=== PATIENT | male | born 1935 | race African-American/Black ===

== ENCOUNTER 2016-12-26 09:35 | Observation (INO) | payer MEDICARE ==
--- NOTE | 2016-12-26 10:28 | ER Document Report ---
ED Medical Screen (RME) - General Chief Complaint: Dizziness Stated Complaint: DIZZINESS Time Seen by Provider: 12/26/16 10:22 Notes: Patient is a 81-year-old male, past medical history hypertension, hyperlipidemia , presents after he woke up feeling lightheaded when he stands. He noticed about a 20 minute episode where he felt his heart racing, he took his pulse and it was elevated. It resolved without any intervention. He is currently only complaining of feeling lightheaded when he stands, but is not having palpitations. Denies syncope, chest pain, shortness of breath, leg swelling on the nausea, vomiting, blurry vision, numbness or tingling. PE: RRR. Lungs CTAB. Abdomen soft and non-tender. No nystagmus. I have greeted and performed a rapid initial assessment of this patient. A comprehensive ED assessment and evaluation of the patient, analysis of test results and completion of the medical decision making process will be conducted by additional ED providers. TRAVEL OUTSIDE OF THE [place] IN LAST 30 DAYS: No - Related Data Allergies/Adverse Reactions: No Known Allergies Allergy (Verified 12/26/16 09:48) Past Medical History - Past Medical History Cardiac Medical History: Reports: Hx Congestive Heart Failure, Hx Hypercholesterolemia, Hx Hypertension Pulmonary Medical History: Reports: Hx COPD Renal/ Medical History: Denies: Hx Peritoneal Dialysis - Immunizations Hx Diphtheria, Pertussis, Tetanus Vaccination: Yes
--- NOTE | 2016-12-26 11:19 | ER Document Report ---
ED General - General Chief Complaint: Dizziness Stated Complaint: DIZZINESS Time Seen by Provider: 12/26/16 10:22 Notes: 81-year-old male presents with sudden onset positional dizziness after his going from sitting to standing and walking alcohol about 3 hours ago at home. He felt like he was going to black out but did not. He sat down and had water and felt better but now is only mildly dizzy. Denies vertigo or unilateral neurologic symptoms palpitations chest pain shortness of breath or vomiting. Denies headache. He did measure his pulse and stated that it was "fast." He has never syncopized before. I do not see that he had an echo in the system but he does have a baseline conduction abnormality and had a negative Cardiolite stress test in 2013. TRAVEL OUTSIDE OF THE [place] IN LAST 30 DAYS: No - Related Data Allergies/Adverse Reactions: No Known Allergies Allergy (Verified 12/26/16 09:48) Past Medical History - Social History Smoking Status: Never Smoker Frequency of alcohol use: None Drug Abuse: None Family History: CAD Patient has suicidal ideation: No Patient has homicidal ideation: No - Past Medical History Cardiac Medical History: Reports: Hx Congestive Heart Failure, Hx Hypercholesterolemia, Hx Hypertension Pulmonary Medical History: Reports: Hx COPD Renal/ Medical History: Denies: Hx Peritoneal Dialysis - Immunizations Hx Diphtheria, Pertussis, Tetanus Vaccination: Yes Hx Pneumococcal Vaccination: 07/01/07 Review of Systems - Review of Systems Notes: GEN: Denies fever, chills, weight loss ENT: Denies sore throat, nasal discharge, ear pain EYES: Denies blurry vision, eye pain, discharge CV: Denies chest pain, palpitations, edema RESP: Denies cough, shortness of breath, wheezing GI: Denies abdominal pain, nausea, vomiting, diarrhea MSK: Denies joint pain/swelling, edema, SKIN: Denies rash, skin lesions LYMPH: Denies swollen glands/lymph nodes NEURO: Denies headache, focal weakness or numbness, dizziness PSYCH: Denies depression, suicidal or homicidal ideation Physical Exam - Vital signs Vitals: Resp 20 12/26/16 10:23 - Notes Notes: General: No acute distress, well-nourished Head: Atraumatic, normocephalic ENT: Mouth normal, oropharynx moist, no exudates or tonsillar enlargement Eyes: Conjunctiva normal, pupils equal, lids normal Neck: No JVD, supple, no guarding CVS: Normal rate, regular rhythm, no murmurs Resp: No resp distress, equal and normal breath sounds bilaterally GI: Nondistended, soft, no tenderness to palpation, no rebound or guarding Ext: No deformities, no edema, normal range of motion in upper and lower ext Skin: No rash, warm Lymphatic: No lymphadeopathy noted Neuro: Awake, alert. Face symmetric. Course - Re-evaluation Re-evalutation: 12/26/16 11:47 81-year-old male presents with positional dizziness now nearly resolved with normal vital signs. He does not have a murmur or other physical exam findings concerning for a cause of syncope. There is EKG is abnormal, it is unchanged from prior in terms of the conduction abnormalities. I will get basic labs to rule out anemia and MN. 12/26/16 12:02 Lab evaluation is negative. 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 Observation telemetry per Dr. Peterson at 12 PM. - Vital Signs Vital signs: Temp Pulse Resp BP Pulse Ox 19 97 12/26/16 11:19 12/26/16 11:19 - Laboratory Result Diagrams: 12/26/16 11:04 12/26/16 11:04 Laboratory results interpreted by me: 12/26/16 11:04 Glucose 118 H Creatine Kinase 248 H - EKG Interpretation by [facility] EKG shows normal: Sinus rhythm, ST-T Waves - No acute changes Rate: Normal Heart block present: 1st Degree When compared to previous EKG there are: No significant change - Trifascicular block changed Additional EKG results interpreted by me: 12/26/16 11:19 Trifascicular block Discharge - Discharge Condition: Good Disposition: ADMITTED OBSERVATION Admitting Provider: Hospitalist Unit Admitted: Telemetry
--- NOTE | 2016-12-26 11:21 | RADIOLOGY REPORT (SQ) ---
EXAM DESCRIPTION: CHEST SINGLE VIEW COMPLETED DATE/TIME: 12/26/2016 11:12 am REASON FOR STUDY: palpitations COMPARISON: 05/13/2014, 11/05/2012 EXAM PARAMETERS: NUMBER OF VIEWS: One view. TECHNIQUE: Single frontal radiographic view of the chest acquired. RADIATION DOSE: NA LIMITATIONS: None. FINDINGS: LUNGS AND PLEURA: No opacities, masses or pneumothorax. No pleural effusion. MEDIASTINUM AND HILAR STRUCTURES: No masses. Contour normal. HEART AND VASCULAR STRUCTURES: Heart normal in size. Normal vasculature. BONES: No acute findings. HARDWARE: None in the chest. OTHER: No other significant finding. IMPRESSION: NO ACUTE RADIOGRAPHIC FINDING IN THE CHEST. TECHNICAL DOCUMENTATION: JOB ID: [id number]
[2016-12-26 11:22] LABS: ABSOLUTE EOSINOPHILS # (AUTO) 0.1 10^3/uL (0.0-0.6); ABSOLUTE LYMPHOCYTES (AUTO) 1.9 10^3/uL (0.5-4.7); ABSOLUTE MONOCYTES (AUTO) 0.6 10^3/uL (0.1-1.4); ABSOLUTE NEUT (AUTO) 2.8 10^3/uL (1.7-8.2); BASOPHILS % (AUTO) 0.3 % (0-2); EOSINOPHILS % (AUTO) 1.9 % (0-6); HEMATOCRIT 42.6 % (37.9-51.0); HEMOGLOBIN 14.1 g/dL (13.5-17.0); HGB HCT DIFFERENCE -0.3; LYMPHOCYTES % (AUTO) 35.4 % (13-45); MEAN CORPUSCULAR HEMOGLOBIN 31.3 pg (27.0-33.4); MEAN CORPUSCULAR HGB CONC 33.1 g/dL (32.0-36.0); MEAN CORPUSCULAR VOLUME 95 fl (80-97); MONOCYTES % (AUTO) 10.5 % (3-13); SEGMENTED NEUTROPHILS % (AUTO) 51.9 % (42-78); WHITE BLOOD COUNT 5.4 10^3/uL (4.0-10.5)
[2016-12-26 11:39] LABS: ALANINE AMINOTRANSFERASE 34 U/L (21-72); ALBUMIN 4.4 g/dL (3.5-5.0); ALKALINE PHOSPHATASE 60 U/L (38-126); ANION GAP 11 (5-19); ASPARTATE AMINO TRANSFERASE 26 U/L (17-59); BILIRUBIN,DIRECT 0.2 mg/dL (0.0-0.4); BILIRUBIN,TOTAL 0.7 mg/dL (0.2-1.3); BLOOD UREA NITROGEN 14 mg/dL (7-20); CALCIUM 9.8 mg/dL (8.4-10.2); CARBON DIOXIDE 26 mmol/L (22-30); CHLORIDE 104 mmol/L (98-107); CREATINE KINASE 248 U/L (55-170); CREATININE RESULT 0.95 mg/dL (0.52-1.25); GLUCOSE 118 mg/dL (75-110); POTASSIUM 4.5 mmol/L (3.6-5.0); TOTAL PROTEIN 7.9 g/dL (6.3-8.2)
[2016-12-26 11:52] LABS: TROPONIN I < 0.012 ng/mL
[2016-12-26] MEDS ORDERED: RINGERS SOLUTION,LACTATED 1,000 ML IV PRN (14:01)
[2016-12-26] MEDS ORDERED: ACETAMINOPHEN 325 MG TABLET PO PRN (14:04)
[2016-12-26] MEDS ORDERED: MAGNESIUM HYDROXIDE SUSP 30 ML UDCUP PO PRN (14:04)
[2016-12-26] MEDS ORDERED: ONDANSETRON HCL INJ/PF 4 MG/2 ML SDV IV PRN (14:04)
[2016-12-26 14:52] LABS: PARTIAL THROMBOPLASTIN TIME 23.7 SEC (23.5-35.8)
[2016-12-26 14:55] LABS: D-DIMER 0.73 ug/mL (0.00-0.50)
[2016-12-26 15:14] LABS: PHOSPHORUS 3.2 mg/dL (2.5-4.5)
--- NOTE | 2016-12-26 15:41 | RADIOLOGY REPORT (SQ) ---
EXAM DESCRIPTION: CTA CHEST COMPLETED DATE/TIME: 12/26/2016 3:24 pm REASON FOR STUDY: asymmetric pulses, poss subclavian steal R55 SYNCOPE AND COLLAPSE R73.9 HYPERGLY CEMIA, UNSPECIFIED I10 ESSENTIAL (PRIMARY) HYPERTENSION COMPARISON: None. TECHNIQUE: CT scan of the chest performed using helical scanning technique with dynamic intravenous contrast injection. Images reviewed with lung, soft tissue and bone windows. Reconstructed coronal and sagittal MPR images reviewed. Additional 3 dimensional post-processing performed to develop Maximal Intensity Projection images (VT P). All images stored on PACS. All CT scanners at this facility use dose modulation, iterative reconstruction, and/or weight based d osing when appropriate to reduce radiation dose to as low as reasonably achievable (ALARA). [facility]: Dose Right [facility]: CareDose [facility]: Dose Right [facility]: Teradose 4D [facility]: iMotions - Eye Tracking CONTRAST TYPE AND DOSE: contrast/concentration: Isovue 370.00 mg/ml; Total Contrast Delivered: 77.3 ml; Total Saline Delivered: 80.0 ml RENAL FUNCTION: BUN 14 creatinine 1.0 RADIATION DOSE: Up-to-date CT equipment and radiation dose reduction techniques were employed. CTDIv ol: 9.9 - 15.3 mGy. DLP: 533 mGy-cm. . LIMITATIONS: None. FINDINGS: LUNGS AND PLEURA: Chronic interstitial changes. No evidence of pulmonary edema or pneumon ia. AORTA AND GREAT VESSELS: No aneurysm or dissection. HEART: Cardiomegaly. No pericardial effusion. PULMONARY ARTERIES: No emboli visualized in the main pulmonary arteries or the segmental branches. HILAR AND MEDIASTINAL STRUCTURES: No identified masses or abnormal nodes. HARDWARE: None in the chest. UPPER ABDOMEN: Gallstones. Benign liver cyst. THYROID AND OTHER SOFT TISSUES: 2 cm nodule right thyroid. BONES: No acute or significant finding. 3D MIPS: Confirm above findings. OTHER: No other significant finding. IMPRESSION: No evidence of pulmonary embolus. TECHNICAL DOCUMENTATION: JOB ID: [id number] Quality ID # [id number]: Final reports with documentation of one or more dose reduction techniques (e.g., Au tomated exposure control, adjustment of the mA and/or kV according to patient size, use of iterative reconstruction technique) 2010 [employer]- All Rights Reserved
[2016-12-26] MEDS ORDERED: ENOXAPARIN SODIUM INJ 40 MG/0.4 ML DISP.SYRIN SUBCUT ONE (16:00)
[2016-12-26] MEDS ORDERED: LISINOPRIL 10 MG TABLET PO ONE (16:00)
--- NOTE | 2016-12-26 16:16 | PDOC H&P ---
History of Present Illness Admission Date/PCP: 12/26/16 12:34 TYLER COLLADO MD Patient complains of: palpitations and dizziness History of Present Illness: FAYE CHOUDHURY is a 81 year old male presents from home with sudden onset palpitations and asct'd dizziness described as lightheadedness that came on shortly after he noticed a pounding in his chest and racing pulse. he denies chest pain, cough with phlegm, SOA, unilateral weakness, slurred speech, facial droop, vision or hearing changes, numbness or tingling, arm or jaw pain, fevers/ chills, n/v/d, melena, hematochezia. He reports several similar episodes in the past but each time no etiology ever found on evaluation. I see an echo 2013 shows mild LVH, 1 of 4 DD, mod pulm HTN and mild MR, TR; carotid dopplers no stenosis or plaque; MRI brain shows mild small vessel disease. 2013 underwent nuclear stress test that was negative and EF 64%. He has been in his usual state of health, started no new meds or OTC remedies, no recent travels and no sick contacts. he has no prior hx of afib or other tachyarrhythmias he is aware of. never followed by [facility]. eval in ED unrevealing and we were asked to admit for eval and management of presyncope. Past Medical History Cardiac Medical History: Reports: Congestive Heart Failure, Hyperlipidema, Hypertension Pulmonary Medical History: Reports: Chronic Obstructive Pulmonary Disease (COPD) GI Medical History: Reports: Peptic Ulcer Disease - with life threatening GIB Past Surgical History Past Surgical History: Reports: None Social History Information Source: Patient Smoking Status: Former Smoker - quit in 1974 Frequency of Alcohol Use: None Hx Recreational Drug Use: No Hx Prescription Drug Abuse: No - Advance Directive Resuscitation Status: Full Code Family History Family History: CAD Parental Family History Reviewed: Yes Children Family History Reviewed: Yes Sibling(s) Family History Reviewed.: Yes Medication/Allergy Home Medications: Lisinopril [Lisinopril] 20 mg PO DAILY 12/26/16 Lisinopril/Hydrochlorothiazide [Lisinopril-Hctz 20-12.5 mg Tab] 1 tab PO DAILY 12/26/16 Metoprolol Tartrate [Metoprolol Tartrate] 25 mg PO DAILY 12/26/16 Rosuvastatin Calcium [Rosuvastatin Calcium] 10 mg PO DAILY 12/26/16 Allergies/Adverse Reactions: No Known Allergies Allergy (Verified 12/26/16 09:48) Review of Systems All systems: reviewed and no additional remarkable complaints except as stated - all systems reviewed, see above, remaining systems negative Physical Exam Vital Signs: Temp Pulse Resp BP Pulse Ox 88 16 144/81 H 98 12/26/16 15:10 12/26/16 15:10 12/26/16 15:10 12/26/16 15:10 General appearance: PRESENT: no acute distress, well-developed, well-nourished Head exam: PRESENT: atraumatic, normocephalic Eye exam: PRESENT: EOMI, PERRLA. ABSENT: conjunctival injection, nystagmus, scleral icterus Mouth exam: PRESENT: moist, neck supple Neck exam: PRESENT: carotid bruit - R>L high pitched, short at the base of the neck. ABSENT: JVD, lymphadenopathy Respiratory exam: PRESENT: clear to auscultation juan. ABSENT: accessory muscle use Cardiovascular exam: PRESENT: RRR, systolic murmur - high pitched shrill at left 2nd intercostal, short systolic; no palpable thrill Pulses: PRESENT: normal carotid pulses, normal radial pulses. ABSENT: normal dorsalis pedis pul - asymmetric with diminished and delayed left popliteal and DP Vascular exam: PRESENT: normal capillary refill. ABSENT: pallor GI/Abdominal exam: PRESENT: normal bowel sounds, soft. ABSENT: organolmegaly, tenderness Extremities exam: ABSENT: calf tenderness, pedal edema Musculoskeletal exam: PRESENT: ambulatory, full ROM Neurological exam: PRESENT: alert, awake, oriented to person, oriented to place , oriented to time, oriented to situation. ABSENT: reflexes normal - patellar 1 + only, motor sensory deficit Psychiatric exam: PRESENT: appropriate affect, normal mood Skin exam: PRESENT: dry, warm, other - normal turgor Results Laboratory Results: 12/26/16 11:04 12/26/16 11:04 MCV 95 fl (80-97) 12/26/16 11:04 MCH 31.3 pg (27.0-33.4) 12/26/16 11:04 MCHC 33.1 g/dL (32.0-36.0) 12/26/16 11:04 RDW 13.0 % (11.5-14.0) 12/26/16 11:04 Seg Neutrophils % 51.9 % (42-78) 12/26/16 11:04 Lymphocytes % 35.4 % (13-45) 12/26/16 11:04 Monocytes % 10.5 % (3-13) 12/26/16 11:04 Eosinophils % 1.9 % (0-6) 12/26/16 11:04 Basophils % 0.3 % (0-2) 12/26/16 11:04 Absolute Neutrophils 2.8 10^3/uL (1.7-8.2) 12/26/16 11:04 Absolute Lymphocytes 1.9 10^3/uL (0.5-4.7) 12/26/16 11:04 Absolute Monocytes 0.6 10^3/uL (0.1-1.4) 12/26/16 11:04 Absolute Eosinophils 0.1 10^3/uL (0.0-0.6) 12/26/16 11:04 Absolute Basophils 0.0 10^3/uL (0.0-0.2) 12/26/16 11:04 Chloride 104 mmol/L (98-107) 12/26/16 11:04 Carbon Dioxide 26 mmol/L (22-30) 12/26/16 11:04 Anion Gap 11 (5-19) 12/26/16 11:04 Est GFR ( Amer) > 60 (>60) 12/26/16 11:04 Est GFR (Non-Af Amer) > 60 (>60) 12/26/16 11:04 Glucose 118 mg/dL (75-110) H 12/26/16 11:04 Calcium 9.8 mg/dL (8.4-10.2) 12/26/16 11:04 Phosphorus 3.2 mg/dL (2.5-4.5) 12/26/16 11:04 Magnesium 2.0 mg/dL (1.6-2.3) 12/26/16 11:04 Total Bilirubin 0.7 mg/dL (0.2-1.3) 12/26/16 11:04 AST 26 U/L (17-59) 12/26/16 11:04 ALT 34 U/L (21-72) 12/26/16 11:04 Alkaline Phosphatase 60 U/L (38-126) 12/26/16 11:04 Total Protein 7.9 g/dL (6.3-8.2) 12/26/16 11:04 Albumin 4.4 g/dL (3.5-5.0) 12/26/16 11:04 Vitamin B12 778.0 pg/mL (239-931) 12/26/16 11:04 TSH 0.83 uIU/mL (0.47-4.68) 12/26/16 11:04 12/26/16 12/26/16 11:04 11:04 Creatine Kinase 248 H Troponin I < 0.012 NT-Pro-B Natriuret Pep 51 Impressions: Chest/Abdomen CTA 12/26/16 00:00 IMPRESSION: No evidence of pulmonary embolus. Chest X-Ray 12/26/16 10:00 IMPRESSION: NO ACUTE RADIOGRAPHIC FINDING IN THE CHEST. Status: Imported from PACS Assessment & Plan - Diagnosis (1) Heart palpitations Is this a current diagnosis for this admission?: YesPlan: high suspicion for cardiac arrhythmia as source of his symptoms both now and in the past; will need monitored bed, serial enzymes and ecg for any thythm change , echo and outpt referral for event monitor if none identified while here. (2) Pre-syncope Is this a current diagnosis for this admission?: YesPlan: will ck orthosatic vitals, B12 (3) Decreased pulse Is this a current diagnosis for this admission?: YesPlan: asymmetric pulses in left leg; tried to get CT chest for subclavian steal, eval of aortic arch but processed as PE study instead (4) HTN (hypertension), benign Is this a current diagnosis for this admission?: YesPlan: continue home regimen (5) Hyperlipidemia Qualifiers: Hyperlipidemia type: unspecified Qualified Code(s): E78.5 - Hyperlipidemia, unspecified Is this a current diagnosis for this admission?: YesPlan: f/u lipids in am (6) Murmur, cardiac Plan: follow up echo and ck carotids - Time Time Spent: 50 to 70 Minutes Medications reviewed and adjusted accordingly: Yes Anticipated discharge: Home Within: within 24 hours
--- NOTE | 2016-12-26 17:33 | XCELERA REPORT ---
[address] [address] Transthoracic Echocardiogram Report Name: FAYE CHOUDHURY Age: 81 yrs Gender: Male : 1935 Patient Status: Inpatient Patient Location: \S\ED09\S\A Study Date: 12/26/2016 02:42 PM Height: 69 in Weight: 190 lb BSA: 2.0 m2 Procedure: A two-dimensional transthoracic echocardiogram with color flow and Doppler was performed. The study was technically difficult with many images being suboptimal in quality. Reason For Study: MURMUR History: MURMUR. Ordering Physician: PARDEEP GUEVARA Performed By: Briseyda Reynolds Interpretation Summary The left ventricle is normal in size. There is normal left ventricular wall thickness. Left ventricular systolic function is normal. LV EF is 70% Doppler measurements suggest pseudonormalized left ventricular relaxation, which is associated with grade II/IV or mild to moderate diastolic dysfunction The left ventricular wall motion is normal. There is no thrombus. The right ventricle is normal in size and function. The right atrium is normal. The left atrial size is normal. The interatrial septum is intact with no evidence for an atrial septal defect. There is mild mitral annular calcification. There is no evidence of mitral valve prolapse. There is no mitral valve stenosis. There is a trace to mild amount of mitral regurgitation There is no aortic valvular vegetation. There is no aortic valve stenosis There is no LVOT obstruction. No aortic regurgitation is present. There is sclerosis of the non coronary cusp. There is no tricuspid stenosis. There is a trace amount of tricuspid regurgitation No significant pulmonary hypertension.RVSP is 31 mm of Kg , with RA mean of 5, and is just above the upper limit of 30 mm of Hg, MMode/2D Measurements \T\ Calculations RVDd: 2.1 cm LVIDd: 3.9 cm FS: 56.9 % Ao root diam: 2.7 cm IVSd: 0.97 cm LVIDs: 1.7 cm EDV(Teich): 67.6 ml LVPWd: 1.1 cm ESV(Teich): 8.4 ml Ao root area: 5.6 cm2 EF(Teich): 87.6 % ACS: 1.8 cm LA dimension: 2.4 cm LVOT diam: 2.0 cm LVOT area: 3.3 cm2 Doppler Measurements \T\ Calculations MV E max nasreen: MV P1/2t max nasreen: Ao V2 max: LV V1 max P.1 cm/sec 66.6 cm/sec 139.8 cm/sec 4.3 mmHg MV A max nasreen: MV P1/2t: 57.6 msec Ao max PG: LV V1 max: 121.9 cm/sec MVA(P1/2t): 3.8 cm2 7.8 mmHg 103.7 cm/sec MV E/A: 0.56 MV dec slope: AMPARO(V,D): 2.4 cm2 339.0 cm/sec2 PA V2 max: TR max nasreen: 122.2 cm/sec 255.2 cm/sec PA max P.0 mmHgTR max P.0 mmHg Left Ventricle The left ventricle is normal in size. There is normal left ventricular wall thickness. Left ventricular systolic function is normal. LV EF is 70%. Doppler measurements suggest pseudonormalized left ventricular relaxation, which is associated with grade II/IV or mild to moderate diastolic dysfunction. The left ventricular wall motion is normal. There is no thrombus. There is no ventricular septal defect visualized. Right Ventricle The right ventricle is normal in size and function. Atria The right atrium is normal. The left atrial size is normal. The interatrial septum is intact with no evidence for an atrial septal defect. Mitral Valve There is mild mitral annular calcification. There is no evidence of mitral valve prolapse. There is no vegetation seen on the mitral valve. There is no mitral valve stenosis. There is a trace to mild amount of mitral regurgitation. Aortic Valve There is no aortic valvular vegetation. There is no aortic valve stenosis. There is no LVOT obstruction. There is sclerosis of the non coronary cusp. No aortic regurgitation is present. Tricuspid Valve There is no tricuspid stenosis. There is a trace amount of tricuspid regurgitation. No significant pulmonary hypertension.RVSP is 31 mm of Kg , with RA mean of 5, and is just above the upper limit of 30 mm of Hg,. Pulmonic Valve There is no pulmonic valvular stenosis. There is no pulmonic valvular regurgitation. Great Vessels The aortic root is normal size. : PARDEEP GUEVARA > Kamla Meek
[2016-12-26 18:31] LABS: APPEARANCE,URINE CLEAR; BILIRUBIN,URINE NEGATIVE (NEGATIVE); GLUCOSE, URINE NEGATIVE (NEGATIVE); KETONES,URINE NEGATIVE (NEGATIVE); LEUKOCYTE ESTERASE,URINE NEGATIVE (NEGATIVE); NITRITE,URINE NEGATIVE (NEGATIVE); PROTEIN,URINE NEGATIVE (NEGATIVE); URINE SPECIFIC GRAVITY 1.053; UROBILINOGEN,URINE NEGATIVE mg/dL (<2.0)
--- NOTE | 2016-12-26 21:21 | EKG REPORT ---
SEVERITY:- ABNORMAL ECG - SINUS RHYTHM FIRST DEGREE AV BLOCK RBBB AND LAFB : Confirmed by: Beth Hernandez 26-Dec-2016 21:20:53
[2016-12-27 05:43] LABS: CHOLESTEROL 160.41 mg/dL (0-200); Direct HDL 44 mg/dL (>40); TRIGLYCERIDES 75 mg/dL (<150)
[2016-12-27 05:54] LABS: DIRECT LDL 93 mg/dL (<100)
--- NOTE | 2016-12-27 07:11 | EKG REPORT ---
SEVERITY:- ABNORMAL ECG - SINUS RHYTHM FIRST DEGREE AV BLOCK RIGHT BUNDLE BRANCH BLOCK : Confirmed by: Beth Hernandez 27-Dec-2016 07:10:56
[2016-12-27] MEDS ORDERED: ENOXAPARIN SODIUM INJ 40 MG/0.4 ML DISP.SYRIN SUBCUT SCH (10:00)
[2016-12-27] MEDS ORDERED: DOCUSATE SODIUM 100 MG CAPSULE PO SCH (10:00)
[2016-12-27] MEDS ORDERED: LISINOPRIL 10 MG TABLET PO SCH (10:00)
[2016-12-27] MEDS ORDERED: METOPROLOL TARTRATE 50 MG TABLET PO SCH (10:00)
[2016-12-27 12:25] VITALS: BP 136/73
--- NOTE | 2016-12-27 14:33 | RADIOLOGY REPORT (SQ) ---
EXAM DESCRIPTION: CAROTID DOPPLER COMPLETED DATE/TIME: 12/27/2016 11:37 am REASON FOR STUDY: carotid bruit R55 SYNCOPE AND COLLAPSE R73.9 HYPERGLYCEMIA, UNSPECIFIED I10 ESS ENTIAL (PRIMARY) HYPERTENSION COMPARISON: 05/13/2014 TECHNIQUE: Grayscale ultrasound, Doppler velocity and spectra, and color Doppler images acquired of the extra-cranial carotid and vertebral arteries. Images stored on PACS. LIMITATIONS: None. FINDINGS: RIGHT CAROTID CCA Velocities: Within normal limits. ICA Velocities Peak systolic 0.88 m/s. End diastolic 0.23 m/s. Proximal ICA/CCA peak systolic ratio 1.3. Spectra normal. No significant plaque. LEFT CAROTID CCA Velocities: Within normal limits. ICA Velocities Peak systolic 1.23 m/s. End diastolic 0.34 m/s. Proximal ICA/CCA peak systolic ratio 1.3. Spectra normal. No significant plaque. VERTEBRAL ARTERIES: Antegrade flow. Normal waveforms. SUBCLAVIAN ARTERIES: No finding. OTHER: No other significant finding. IMPRESSION: NO HEMODYNAMICALLY SIGNIFICANT STENOSIS. COMMENT: Quality ID #[id number]: Velocity criteria are extrapolated from the diameter data as defined by t he Society of Radiologists in Ultrasound Consensus Conference. Radiology 2003: 229; 340-346. TECHNICAL DOCUMENTATION: JOB ID: [id number] [employer]- All Rights Reserved
[2016-12-27] MEDS ORDERED: ONDANSETRON HCL INJ/PF 4 MG/2 ML SDV IV PRN (14:36)
[2016-12-27] MEDS ORDERED: MAGNESIUM HYDROXIDE SUSP 30 ML UDCUP PO PRN (14:36)
--- NOTE | 2016-12-27 16:08 | PDOC DISCHARGE SUMMARY ---
General - Admit/Disc Date/PCP Admission Date/Primary Care Provider: 12/26/16 14:01 TYLER COLLADO MD Discharge Date: 12/27/16 - Discharge Diagnosis (1) Heart palpitations Is this a current diagnosis for this admission?: YesSummary: no evidence for recurrence on overnight monitoring. suggested he get with his PCP to decide on need for a 30d event monitor (2) Pre-syncope Is this a current diagnosis for this admission?: YesSummary: no recurrence and no abnl found on rather extensive evaluation. He is pre- diabetic with Hg A1c 6.1 and now admits to binge eating the night before his symptoms and a love for sweets so it is possible he had adverse reaction to the massive glucose load. he was counselfed regarding diet and lifestyle changes and to f/u with PCP for further instructions. (3) Decreased pulse Is this a current diagnosis for this admission?: YesSummary: physical exam anomaly not reproducible on today's exam. (4) HTN (hypertension), benign Is this a current diagnosis for this admission?: YesSummary: resume home regimen (5) Hyperlipidemia Is this a current diagnosis for this admission?: Yes (6) Murmur, cardiac Summary: echo shows mild MR and LVH with diastolic dysfxn, carotids did not show any stenosis. - Additional Information Resuscitation Status: Full Code Discharge Diet: Cardiac Discharge Activity: Activity As Tolerated Home Medications: Lisinopril 20 mg PO DAILY 12/26/16 Lisinopril/Hydrochlorothiazide [Lisinopril-Hctz 20-12.5 mg Tab] 1 tab PO DAILY 12/26/16 Metoprolol Tartrate 25 mg PO DAILY 12/26/16 Rosuvastatin Calcium 10 mg PO DAILY 12/26/16 History of Present Illness Patient complains of: palpitations and dizziness History of Present Illness: FAYE CHOUDHURY is a 81 year old male presents from home with sudden onset palpitations and asct'd dizziness described as lightheadedness that came on shortly after he noticed a pounding in his chest and racing pulse. Hospital Course Hospital Course: he denies chest pain, cough with phlegm, SOA, unilateral weakness, slurred speech, facial droop, vision or hearing changes, numbness or tingling, arm or jaw pain, fevers/chills, n/v/d, melena, hematochezia. He reports several similar episodes in the past but each time no etiology ever found on evaluation. I see an echo 2013 shows mild LVH, 1 of 4 DD, mod pulm HTN and mild MR, TR; carotid dopplers no stenosis or plaque; MRI brain shows mild small vessel disease. 2013 underwent nuclear stress test that was negative and EF 64% . He has been in his usual state of health, started no new meds or OTC remedies , no recent travels and no sick contacts. he has no prior hx of afib or other tachyarrhythmias he is aware of. 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 eval in ED unrevealing and we were asked to admit for eval and management of presyncope. he underwent an extensive lab and imaging evaluation, overnight monitoring on telemetry and no significant abnl found other than pre-diabetes with HgA1c = 6.1. he had no recurrence of his symptoms and wants to go home. he is hemodynamically stable to do so. he was instructed to follow up wit hhis PCP in 1-2 wks for routine hospital f/u and return to the ED for any worsening of his condition. he may need 30d event monitor to look further for cardiac arrhythmia. he expresses no concerns to me about going [email or web address] Physical Exam Vital Signs: Temp Pulse Resp BP Pulse Ox 98.4 F 64 18 136/73 H 98 12/27/16 15:25 12/27/16 15:25 12/27/16 15:25 12/27/16 15:25 12/27/16 15:25 Intake & Output 12/26/16 12/27/16 12/28/16 06:59 06:59 06:59 Intake Total 2383 Output Total 1300 Balance 1083 Weight 78.2 kg General appearance: PRESENT: no acute distress, well-developed, well-nourished Head exam: PRESENT: atraumatic, normocephalic Mouth exam: PRESENT: moist Respiratory exam: PRESENT: accessory muscle use Cardiovascular exam: PRESENT: RRR Musculoskeletal exam: PRESENT: ambulatory, full ROM Neurological exam: PRESENT: alert, awake, oriented to person, oriented to place Results Laboratory Results: 12/26/16 12/27/16 17:57 04:59 Triglycerides 75 Cholesterol 160.41 LDL Cholesterol Direct 93 VLDL Cholesterol 15.0 HDL Cholesterol 44 Urine Color STRAW Urine Appearance CLEAR Urine pH 8.0 Ur Specific [place] 1.053 Urine Protein NEGATIVE Urine Glucose (UA) NEGATIVE Urine Ketones NEGATIVE Urine Blood NEGATIVE Urine Nitrite NEGATIVE Ur Leukocyte Esterase NEGATIVE Urine WBC (Auto) 0 12/26/16 12/26/16 12/27/16 16:50 22:42 04:59 Troponin I < 0.012 < 0.012 < 0.012 Impressions: Chest/Abdomen CTA 12/26/16 00:00 IMPRESSION: No evidence of pulmonary embolus. Chest X-Ray 12/26/16 10:00 IMPRESSION: NO ACUTE RADIOGRAPHIC FINDING IN THE CHEST. Carotid Doppler Study 12/27/16 00:00 IMPRESSION: NO HEMODYNAMICALLY SIGNIFICANT STENOSIS. Qualifiers PATEINT BEING DISCHARGED WITH ANY OF THE FOLLOWING DIAGNOSIS?: No VTE patient discharged on overlapping Therapy?: No Reason(s) for not prescribing Overlap Therapy:: Not indicated Plan Discharge Plan: d/c home and f/u with pcp in 1-2 wks Time Spent: Greater than 30 Minutes
[2016-12-28] MEDS ORDERED: METOPROLOL TARTRATE 25 MG TABLET PO SCH (10:00)
== END 2016-12-27 16:10 | disposition home or self-care (01) ==
LOC: ER 09:35 → EH 12:34 → UNDOADMOB 12:34 → EH 14:01 → 5 15:40 → EH 15:40
PROVIDERS: ADMIT Family Medicine; ATTEND Family Medicine
DX: R00.2 Palpitations (principal); R55 Syncope and collapse; R73.03 Prediabetes; R09.89 Other specified symptoms and signs involving the circulatory and respiratory systems; I10 Essential (primary) hypertension; E78.5 Hyperlipidemia, unspecified; I34.0 Nonrheumatic mitral (valve) insufficiency; I51.7 Cardiomegaly; I45.3 Trifascicular block; Z79.899 Other long term (current) drug therapy; Z87.891 Personal history of nicotine dependence; Z82.49 Family history of ischemic heart disease and other diseases of the circulatory system
CPT/HCPCS: 93005 ×2; 99285; 36415 ×2; 82607; 82550; 83735; 84100; 84443; 85025; 85610; 85730; 80053; 81001; 84484 ×2; 83036; 85379; 80061; 83880; 93306; 93880; 71010; 71275; 93010 ×2; G0378 ×3; A9270 ×4; J1650 ×2; J7120

== ENCOUNTER 2017-06-07 00:05 | Emergency (ER) | payer MEDICARE ==
[2017-06-07] MEDS ORDERED: ASPIRIN 81 MG TABLET, CHEWABLE PO ONE (00:14)
--- NOTE | 2017-06-07 00:51 | RADIOLOGY REPORT (SQ) ---
EXAM DESCRIPTION: CHEST SINGLE VIEW CLINICAL HISTORY: 81 years, Male, cp COMPARISON: 12/26/2016. NUMBER OF VIEWS: 1. TECHNIQUE: Frontal. LIMITATIONS: None. FINDINGS: Normal lung volume, clear parenchyma, normal cardiac silhouette, and intact bony thorax. IMPRESSION: No acute cardiopulmonary findings. 2011 [facility] [employer]- All Rights Reserved
[2017-06-07] MEDS ORDERED: NORMAL SALINE 1000 ML 1,000 ML IV ONE (00:54)
[2017-06-07 01:40] LABS: ABSOLUTE EOSINOPHILS # (AUTO) 0.1 10^3/uL (0.0-0.6); ABSOLUTE LYMPHOCYTES (AUTO) 2.8 10^3/uL (0.5-4.7); BASOPHILS % (AUTO) 0.2 % (0-2); HEMATOCRIT 39.3 % (37.9-51.0); HEMOGLOBIN 13.7 g/dL (13.5-17.0); HGB HCT DIFFERENCE 1.8; LYMPHOCYTES % (AUTO) 31.7 % (13-45); MEAN CORPUSCULAR HEMOGLOBIN 32.3 pg (27.0-33.4); MEAN CORPUSCULAR HGB CONC 34.7 g/dL (32.0-36.0); MEAN CORPUSCULAR VOLUME 93 fl (80-97); MONOCYTES % (AUTO) 11.3 % (3-13); RED BLOOD COUNT 4.23 10^6/uL (4.35-5.55); RED CELL DISTRIBUTION WIDTH 13.5 % (11.5-14.0); SEGMENTED NEUTROPHILS % (AUTO) 55.8 % (42-78); WHITE BLOOD COUNT 8.9 10^3/uL (4.0-10.5)
[2017-06-07 01:50] LABS: ANION GAP 11 (5-19); BLOOD UREA NITROGEN 25 mg/dL (7-20); CALCIUM 9.8 mg/dL (8.4-10.2); CARBON DIOXIDE 27 mmol/L (22-30); CHLORIDE 102 mmol/L (98-107); CREATININE RESULT 1.21 mg/dL (0.52-1.25); GLUCOSE 104 mg/dL (75-110); SODIUM 140.3 mmol/L (137-145)
[2017-06-07 02:03] LABS: CREATINE KINASE MB 1.17 ng/mL (<4.55)
[2017-06-07 02:15] LABS: TROPONIN I < 0.012 ng/mL
[2017-06-07 02:30] LABS: APPEARANCE,URINE CLEAR; BILIRUBIN,URINE NEGATIVE (NEGATIVE); GLUCOSE, URINE NEGATIVE (NEGATIVE); KETONES,URINE NEGATIVE (NEGATIVE); LEUKOCYTE ESTERASE,URINE NEGATIVE (NEGATIVE); NITRITE,URINE NEGATIVE (NEGATIVE); PROTEIN,URINE NEGATIVE (NEGATIVE); UROBILINOGEN,URINE NEGATIVE mg/dL (<2.0)
[2017-06-07 02:53] LABS: URINE BARBITURATES SCREEN NEGATIVE; URINE METHADONE SCREEN NEGATIVE; URINE OPIATES LOW NEGATIVE; URINE PHENCYCLIDINE SCREEN NEGATIVE
--- NOTE | 2017-06-07 02:58 | RADIOLOGY REPORT (SQ) ---
EXAM DESCRIPTION: CT SOFT TISSUE NECK WITH CLINICAL HISTORY: 81 years Male, painful nodule right lower base of neck COMPARISON: None. TECHNIQUE: 75 mL Isovue-370 IV contrast. This exam was performed according to our departmental dose-optimization program which includes use of Automated Exposure Control, adjustment of the mA and/or kV according to patient size and/or use of iterative reconstruction technique. FINDINGS: 3.3 x 3.1 x 2.5 cm cystic mass of the right thyroid gland. Thyroid sonogram recommended. Nomb-yn-[id number] cervical disc desiccation spondylosis between the C3 and T1 levels including mild right C8 foraminal stenosis. 1.1 x 0.7 cm prominent right suprahyoid cervical lymph node, image 29 of series 300.. Inferior cranium, lymphatics, atherosclerosis, parapharyngeal space, nasopharynx, oral cavity, salivary system, and upper thorax appear otherwise unremarkable. IMPRESSION: 3.3 cm cystic mass of the right thyroid gland. Thyroid sonogram recommended. Comments: 1.Further evaluation by thyroid US recommended for: -Solitary ITN with high risk imaging features (locally invasive nodule or suspicious lymph nodes) -Solitary ITN of any size in pediatric pts. <= 18 years of age -Solitary ITN >= 1 cm in axial plane in pts. between 18 and 35 years of age -Solitary ITN >= 1.5 cm in axial plane in pts >= 35 years of age -Heterogeneous enlarged thyroid gland -ITN avid on FDG-PET or other nuclear medicine (MIBI and octreotide) scans. FNA biopsy is also recommended for PET avid nodules. 2.No f/u imaging is recommended for ITNs not meeting the above criteria. 3.For multiple thyroid nodules, the above recommendations for solitary ITN are to be applied to the largest nodule. 4.No US or f/u recommended for ITNs without high risk features in pts. with limited life expectancy or significant co-morbidities, unless clinically warranted. 5.These recommendations do not apply to pts. w/ increased risk for thyroid cancer or pts. with symptomatic thyroid disease. Recommendations for f/u of Incidental Thyroid Nodules (ITN) found on CT, MR, NM and Extrathyroidal US are based upon the ACR white paper and Mcbride 3-tiered system for managing ITNs: J Am Joaquín [employer]. 2015 Aug;12(2): 143-50
--- NOTE | 2017-06-07 03:59 | ER Document Report ---
ED General - General Chief Complaint: Shortness Of Breath Stated Complaint: CHEST AND NECK PAIN Time Seen by Provider: 06/07/17 00:29 TRAVEL OUTSIDE OF THE [place] IN LAST 30 DAYS: No - HPI Patient complains to provider of: Cough right-sided chest pain right neck mass Notes: Patient coming in requesting evaluation for the above-stated symptoms. States ongoing for approximately 1 month. Patient states cough nonproductive no fevers no chills patient states she is to have a history of smoking however does not smoke anymore. Patient also states right-sided chest pain states chest pain is only when he coughs no trauma no pain on movement. Patient also complaining of a mass to the right side of his neck. Patient states was placed on antibiotics Bactrim states that the mass got better with antibiotics however his return. Denies any IV drug use. Patient resting comfortably upon my evaluation. - Related Data Allergies/Adverse Reactions: No Known Allergies Allergy (Verified 12/26/16 09:48) Past Medical History - Social History Smoking Status: Never Smoker Chew tobacco use (# tins/day): No Frequency of alcohol use: None Drug Abuse: None Family History: Reviewed & Not Pertinent, CAD Patient has suicidal ideation: No Patient has homicidal ideation: No - Past Medical History Cardiac Medical History: Reports: Hx Congestive Heart Failure, Hx Hypercholesterolemia, Hx Hypertension Pulmonary Medical History: Reports: Hx COPD Renal/ Medical History: Denies: Hx Peritoneal Dialysis - Immunizations Hx Diphtheria, Pertussis, Tetanus Vaccination: Yes Hx Pneumococcal Vaccination: 07/01/07 Review of Systems - Review of Systems Constitutional: No symptoms reported EENT: Other - Neck mass Cardiovascular: No symptoms reported, Chest pain - Right chest pain Respiratory: Cough Gastrointestinal: No symptoms reported Genitourinary: No symptoms reported Male Genitourinary: No symptoms reported Musculoskeletal: No symptoms reported Skin: No symptoms reported Hematologic/Lymphatic: No symptoms reported Neurological/Psychological: No symptoms reported -: Yes All other systems reviewed and negative Physical Exam - Vital signs Vitals: Temp Pulse Resp BP Pulse Ox 98.1 F 89 18 187/75 H 98 06/07/17 00:17 06/07/17 00:17 06/07/17 00:17 06/07/17 00:17 06/07/17 00:17 Interpretation: Normal - General General appearance: Appears well, Alert - HEENT Head: Normocephalic, Atraumatic Eyes: Normal Pupils: PERRL Notes: Patient with a palpable right-sided mass approximately 2 cm freely mobile nonpainful. - Respiratory Respiratory status: No respiratory distress Chest status: Nontender Breath sounds: Normal Chest palpation: Normal - Cardiovascular Rhythm: Regular Heart sounds: Normal auscultation Murmur: No - Abdominal Inspection: Normal Distension: No distension Bowel sounds: Normal Tenderness: Nontender Organomegaly: No organomegaly - Back Back: Normal, Nontender - Extremities General upper extremity: Normal inspection, Nontender, Normal color, Normal ROM , Normal temperature General lower extremity: Normal inspection, Nontender, Normal color, Normal ROM , Normal temperature, Normal weight bearing. No: Ken's sign - Neurological Neuro grossly intact: Yes Cognition: Normal Orientation: AAOx4 [place] Coma Scale Eye Opening: Spontaneous [place] Coma Scale Verbal: Oriented [place] Coma Scale Motor: Obeys Commands [place] Coma Scale Total: 15 Speech: Normal Motor strength normal: LUE, RUE, LLE, RLE Sensory: Normal - Psychological Associated symptoms: Normal affect, Normal mood - Skin Skin Temperature: Warm Skin Moisture: Dry Skin Color: Normal Course - Re-evaluation Re-evalutation: 06/07/17 03:56 CT scan was performed showing mass commensal thyroid recommend ultrasound. This will be ordered. Otherwise lab work does not show any significant pathology chest x-rays negative. Patient's vital signs shows hypertension otherwise no other significant abnormalities 06/07/17 05:36 Ultrasounds concerning for thyroid malignancy. Patient will more likely need a fine-needle biopsy. Discussed with surgeon bond runner this or recommend patient follow-up in the clinic with Dr. Shin. Will have the patient follow-up with our social staff worker. Patient states he did give us good contact information. Patient will be discharged home - Vital Signs Vital signs: Temp Pulse Resp BP Pulse Ox 98.1 F 90 18 140/88 H 98 06/07/17 00:17 06/07/17 04:04 06/07/17 04:04 06/07/17 04:04 06/07/17 04:04 - Laboratory Result Diagrams: 06/07/17 01:21 06/07/17 01:21 Laboratory results interpreted by me: 06/07/17 06/07/17 01:21 01:21 RBC 4.23 L BUN 25 H Est GFR (Non-Af Amer) 58 L Discharge - Discharge Clinical Impression: Cough, Right-sided chest wall pain, Thyroid mass of unclear etiology Condition: Good Disposition: HOME, SELF-CARE Instructions: Anti-Inflammatory Medication ([facility]), Chest Wall Pain ([facility]), Growth or Mass, Pending Workup ([facility]) Additional Instructions: Your chest x-ray does not show any signs of pneumonia or inflammation to explain your coughing. I will prescribe you Tessalon Perles to aid in the cough. Also recommend taking Tylenol Motrin for your chest wall pain. Prescriptions: Benzonatate [Tessalon Perle 100 mg Capsule] 100 mg PO ASDIR PRN #40 cap PRN Reason: Cough Referrals: TYLER COLLADO MD [Primary Care Provider] - Follow up as needed WILLIAM SHIN MD [ACTIVE STAFF] - Follow up as needed
--- NOTE | 2017-06-07 04:45 | EKG REPORT ---
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
--- NOTE | 2017-06-07 04:49 | RADIOLOGY REPORT (SQ) ---
EXAM DESCRIPTION: U/S THYROID/SFT TISS HD NECK CLINICAL HISTORY: 81 years Male, neck mass fu from ct scan COMPARISON: CT, same day. TECHNIQUE: Sonogram. FINDINGS: 3.1 x 2.8 x 2.9 cm complex hypoechoic mass with calcification, septation, cystic components. Additional hypoechoic lesions without significant vascularity of the inferior pole of the right thyroid lobe measure up to 1.1 cm each. 5.8 cm right thyroid lobe, 5.3 cm left thyroid lobe, and 1.1 cm thick isthmus appear otherwise unremarkable. IMPRESSION: Complex 3.1 cm right thyroid mass; cannot exclude malignancy. Ultrasound-guided fine-needle aspiration biopsy recommended.
[2017-06-07 05:56] VITALS: BP 130/76
== END 2017-06-07 05:53 | disposition home or self-care (01) ==
LOC: ER 00:05
DX: R05 Cough (principal); E07.9 Disorder of thyroid, unspecified; R07.89 Other chest pain; R06.02 Shortness of breath; M54.2 Cervicalgia; I50.9 Heart failure, unspecified; E78.00 Pure hypercholesterolemia, unspecified; I11.0 Hypertensive heart disease with heart failure; J44.9 Chronic obstructive pulmonary disease, unspecified; Z87.891 Personal history of nicotine dependence
CPT/HCPCS: 93005; 99285; 36415; 87040; 82553; 85025; 80048; 81001; 84484; 80307; 71010; 76536; 70491; 93010; J7030

== ENCOUNTER 2017-07-05 16:31 | Emergency (ER) | payer MEDICARE ==
[2017-07-05] MEDS ORDERED: HYDROCODONE/ACETAMINOPHEN 5-325 MG TABLET PO ONE (19:35)
--- NOTE | 2017-07-05 19:36 | ER Document Report ---
ED General - General Chief Complaint: Shoulder Pain Stated Complaint: FALL;SHOULDER INJURY Time Seen by Provider: 07/05/17 19:35 Mode of Arrival: Ambulatory Information source: Patient Notes: 81-year-old male presents after a slip and fall on his left shoulder just prior to arrival. Patient denies any neurological deficits patient is not able to lift his arm all the way up TRAVEL OUTSIDE OF THE [place] IN LAST 30 DAYS: No - HPI Onset: This afternoon Onset/Duration: Sudden Quality of pain: Achy Severity: Mild Pain Level: 1 Associated symptoms: Body/muscle aches Exacerbated by: Movement Relieved by: Denies Similar symptoms previously: No Recently seen / treated by doctor: No - Related Data Allergies/Adverse Reactions: No Known Allergies Allergy (Verified 07/05/17 16:36) Past Medical History - Social History Smoking Status: Never Smoker Cigarette use (# per day): No Chew tobacco use (# tins/day): No Smoking Education Provided: No Family History: Reviewed & Not Pertinent, CAD - Past Medical History Cardiac Medical History: Reports: Hx Congestive Heart Failure, Hx Hypercholesterolemia, Hx Hypertension Pulmonary Medical History: Reports: Hx COPD Renal/ Medical History: Denies: Hx Peritoneal Dialysis - Immunizations Hx Diphtheria, Pertussis, Tetanus Vaccination: Yes Hx Pneumococcal Vaccination: 07/01/07 Review of Systems - Review of Systems Notes: REVIEW OF SYSTEMS: CONSTITUTIONAL : Denies fever, chills, or sweats. Denies recent illness. EENT: Denies eye, ear, throat, or mouth pain or symptoms. Denies nasal or sinus congestion or discharge. Denies throat, tongue, or mouth swelling or difficulty swallowing. CARDIOVASCULAR: Denies chest pain. Denies palpitations or racing or irregular heart beat. Denies ankle edema. RESPIRATORY: Denies cough, cold, or chest congestion. Denies shortness of breath, difficulty breathing, or wheezing. GASTROINTESTINAL: Denies abdominal pain or distention. Denies nausea, vomiting , or diarrhea. Denies blood in vomitus, stools, or per rectum. Denies black, tarry stools. Denies constipation. GENITOURINARY: Denies difficulty urinating, painful urination, burning, frequency, blood in urine, or discharge. MUSCULOSKELETAL: Admits to shoulder pain SKIN: Denies rash, lesions or sores. HEMATOLOGIC : Denies easy bruising or bleeding. LYMPHATIC: Denies swollen, enlarged glands. NEUROLOGICAL: Denies confusion or altered mental status. Denies passing out or loss of consciousness. Denies dizziness or lightheadedness. Denies headache. Denies weakness or paralysis or loss of use of either side. Denies problems with gait or speech. Denies sensory loss, numbness, or tingling. Denies seizures. PSYCHIATRIC: Denies anxiety or stress. Denies depression, suicidal ideation, or homicidal ideation. ALL OTHER SYSTEMS REVIEWED AND NEGATIVE. Dictation was performed using [employer] voice recognition software PHYSICAL EXAMINATION: GENERAL: Well-appearing, well-nourished and in no acute distress. HEAD: Atraumatic, normocephalic. EYES: Pupils equal round and reactive to light, extraocular movements intact, sclera anicteric, conjunctiva are normal. ENT: Nares patent, oropharynx clear without exudates. Moist mucous membranes. NECK: Normal range of motion, supple without lymphadenopathy LUNGS: Breath sounds clear to auscultation bilaterally and equal. No wheezes rales or rhonchi. HEART: Regular rate and rhythm without murmurs ABDOMEN: Limited range of motion at the shoulder secondary to pain patient is able to lift his hand and arm with his other hand Musculoskeletal: Normal range of motion, no pitting or edema. No cyanosis. NEUROLOGICAL: Cranial nerves grossly intact. Normal speech, normal gait. Normal sensory, motor exams PSYCH: Normal mood, normal affect. SKIN: Warm, Dry, normal turgor, no rashes or lesions noted. Physical Exam - Vital signs Vitals: Temp Pulse Resp BP Pulse Ox 98.6 F 86 18 147/78 H 96 07/05/17 16:48 07/05/17 16:48 07/05/17 16:48 07/05/17 16:48 07/05/17 16:48 Course - Re-evaluation Re-evalutation: 07/05/17 19:36 X-ray pending 07/05/17 19:47 X-ray noted no acute fracture patient will be placed in slings otherwise well- appearing, he will be given follow-up with Ortho as it may be rotator cuff injury that is not seen on x-ray imaging After performing a Medical Screening Examination, I estimate there is LOW risk for INTRACRANIAL HEMORRHAGE, UNSTABLE SPINE FRACTURE, CENTRAL CORD SYNDROME, CAUDA EQUINA, THORACIC AORTIC DISSECTION, PNEUMOTHORAX, PERFORATED BOWEL, RUPTURED ABDOMINAL AORTIC ANEURYSM, ACUTE TENDON RUPTURE, COMPARTMENT SYNDROME, or OPEN FRACTURE, thus I consider the discharge disposition reasonable. Also, there is no evidence or peritonitis, sepsis, or toxicity. I have reevaluated this patient multiple times and no significant life threatening changes are noted. The patient and I have discussed the diagnosis and risks, and we agree with discharging home to follow-up with their primary doctor with the understanding that symptoms and presentations can change. We also discussed returning to the Emergency Department immediately if new or worsening symptoms occur. We have discussed the symptoms which are most concerning (e.g., bloody stool, fever, changing or worsening pain, vomiting) that necessitate immediate return. - Vital Signs Vital signs: Temp Pulse Resp BP Pulse Ox 98.7 F 78 18 150/70 H 98 07/05/17 19:35 07/05/17 19:35 07/05/17 19:35 07/05/17 19:35 07/05/17 19:35 - Diagnostic Test Radiology reviewed: Image reviewed, Reports reviewed - No acute fracture Discharge - Discharge Clinical Impression: Left anterior shoulder pain Condition: Stable Disposition: HOME, SELF-CARE Instructions: Rotator Cuff Injury ([facility]) Prescriptions: Hydrocodone/Acetaminophen [[place] 5-325 mg Tablet] 1 tab PO Q6 #10 tablet Referrals: GABRIELA MUÑOZ MD [ACTIVE STAFF] - Follow up in 3-5 days
[2017-07-05 19:37] VITALS: BP 150/70
--- NOTE | 2017-07-05 19:47 | RADIOLOGY REPORT (SQ) ---
EXAM DESCRIPTION: SHOULDER LEFT 2 OR MORE VIEWS COMPLETED DATE/TIME: 07/05/2017 7:39 pm REASON FOR STUDY: fall with injury COMPARISON: None. NUMBER OF VIEWS: Three views. TECHNIQUE: Internal rotation, external rotation, and Y view images acquired of the left shoulder. LIMITATIONS: None. FINDINGS: MINERALIZATION: Normal. BONES: No acute fracture or dislocation. No worrisome bone lesions. JOINTS: No dislocation. VISUALIZED LUNGS AND RIBS: No pneumothorax. No rib fracture. SOFT TISSUES: No radiopaque foreign body. OTHER: No other significant finding. IMPRESSION: NEGATIVE STUDY OF THE LEFT SHOULDER. NO RADIOGRAPHIC EVIDENCE OF ACUTE INJURY. TECHNICAL DOCUMENTATION: JOB ID: [id number] [employer]- All Rights Reserved
== END 2017-07-05 19:56 | disposition home or self-care (01) ==
LOC: ER 16:31
DX: M25.512 Pain in left shoulder (principal); W01.0XXA Fall on same level from slipping, tripping and stumbling without subsequent striking against object, initial encounter; I50.9 Heart failure, unspecified; E78.00 Pure hypercholesterolemia, unspecified; I11.0 Hypertensive heart disease with heart failure; J44.9 Chronic obstructive pulmonary disease, unspecified
CPT/HCPCS: 99283; 73030; A9270